=== PATIENT | male | born 1990 | race African-American/Black ===

== ENCOUNTER 2016-05-02 06:21 | Emergency (ER) | payer OTHER ==
[2016-05-02 06:08] LABS: INFLUENZA A NEG (NEG); INFLUENZA B NEG (NEG)
[~2016-05-02 06:21] MED LIST: ALLERGY MEDICIN25 M2
== END 2016-05-02 06:29 | disposition home or self-care (01) ==
LOC: SED 06:21
PROVIDERS: Emergency Medicine
DX: R11.2 Nausea with vomiting, unspecified (principal)
CPT/HCPCS: 87804; 99283